=== PATIENT | female | born 1990 | race Caucasian/White ===

== ENCOUNTER 2019-03-25 10:51 | Day surgery (SDC) | payer BC ==
[~2019-03-25] VITALS: Ht 167.6 cm; Wt 87.5 kg
[2019-03-25] MEDS ORDERED: LR 1,000 ML IV SCH (12:42)
[2019-03-25] MEDS ORDERED: METOCLOPRAMIDE HCL 10 MG/2 ML VIAL IVP PRN (12:45)
[2019-03-25] MEDS ORDERED: MORPHINE 4 MG/ML INJ. SYRINGE IVP PRN ×3 (12:45)
[2019-03-25] MEDS ORDERED: fentaNYL CITRATE/PF 100 MCG/2 ML AMP ONE (13:30)
[2019-03-25] MEDS ORDERED: MIDAZOLAM HCL 5 MG/ML VIAL (VERSED) IV ONE (13:30)
[2019-03-25] MEDS ORDERED: PROPOFOL 200MG/ 20ML VIAL (DIPRIVAN) IV ONE (13:30)
[2019-03-25] MEDS ORDERED: KETOROLAC TROMETHAMINE 30 MG VIAL ONE (13:30)
[2019-03-25] MEDS ORDERED: NS IRRIG SOLN 1000 ML IR ONE (13:30)
[2019-03-25] MEDS ORDERED: LR 1,000 ML IV.SOLN IV ONE (13:30)
[2019-03-25] MEDS ORDERED: SEVOFLURANE 15 MIN GAS INH ONE (13:30)
[2019-03-25 16:29] VITALS: BP_SYST 103
== END 2019-03-25 16:10 | disposition home or self-care (01) ==
LOC: SDS 10:51
PROVIDERS: ATTEND Obstetrics & Gynecology
DX: O02.1 Missed abortion (principal); Z88.0 Allergy status to penicillin; Z3A.01 Less than 8 weeks gestation of pregnancy
CPT/HCPCS: 36415; 59820; 88305; J1885; J2250; J2704; J2790; J3010; J7120